=== PATIENT | female | born 1960 | race Caucasian/White ===

== ENCOUNTER 2017-11-08 12:44 | Outpatient (CLI) | END 2017-11-08 12:45 | disposition home or self-care (01) | LOC: LAB 12:44 | PROVIDERS: ATTEND Nurse Practitioner Family | DX: J44.9 Chronic obstructive pulmonary disease, unspecified (principal); E78.5 Hyperlipidemia, unspecified; E03.9 Hypothyroidism, unspecified; Z51.81 Encounter for therapeutic drug level monitoring; Z87.898 Personal history of other specified conditions | CPT/HCPCS: 36415; 80053; 80061; 80185; 84443; 85025 ==

== ENCOUNTER 2017-11-12 10:20 | Outpatient (CLI) | END 2017-11-12 10:21 | disposition home or self-care (01) | LOC: LAB 10:20 | PROVIDERS: ATTEND Nurse Practitioner Family | DX: R78.89 Finding of other specified substances, not normally found in blood (principal) | CPT/HCPCS: 36415; 80185 ==

== ENCOUNTER 2017-12-19 12:56 | Outpatient (CLI) | END 2017-12-19 12:57 | disposition home or self-care (01) | LOC: LAB 12:56 | PROVIDERS: ATTEND Psychiatry & Neurology Clinical Neurophysiology | DX: R56.9 Unspecified convulsions (principal) | CPT/HCPCS: 36415; 80185 ==

== ENCOUNTER 2018-04-11 13:54 | Outpatient (CLI) ==
[2018-01-28 11:00] VITALS: BMI 24.4
== END 2018-04-11 13:55 | disposition home or self-care (01) ==
LOC: LAB 13:54
PROVIDERS: ATTEND Psychiatry & Neurology Clinical Neurophysiology
DX: R56.9 Unspecified convulsions (principal)
CPT/HCPCS: 36415; 80185

== ENCOUNTER 2018-04-16 12:42 | Outpatient (CLI) ==
[2018-01-28 11:00] VITALS: BMI 24.4
--- NOTE | 2018-04-17 10:46 | MAMMO ---
EXAM: Bilateral digital screening mammogram (2-D and 3-D) History: Screening Comparison: None available. Findings: MLO and CC views of bilateral breasts demonstrate scattered fibroglandular breast parenchy ma. CAD was reviewed by the radiologist. Tomosynthesis was performed. There are no dominant masses , no suspicious microcalcifications and no architectural distortions. Impression: Negative mammogram. Recommend followup routine screening mammography in 1 year. BIRADS 1, negative
== END 2018-04-16 12:43 | disposition home or self-care (01) ==
LOC: RAD 12:42
PROVIDERS: ATTEND Internal Medicine
DX: Z12.31 Encounter for screening mammogram for malignant neoplasm of breast (principal)

== ENCOUNTER 2018-06-11 12:33 | Outpatient (CLI) ==
[2018-01-28 11:00] VITALS: BMI 24.4
== END 2018-06-11 12:34 | disposition home or self-care (01) ==
LOC: LAB 12:33
PROVIDERS: ATTEND Psychiatry & Neurology Clinical Neurophysiology
DX: R56.9 Unspecified convulsions (principal)
CPT/HCPCS: 36415; 80185